=== PATIENT | male | born 1965 | race Caucasian/White ===

== ENCOUNTER 2018-12-29 14:37 | Emergency (ER) | payer BC ==
--- NOTE | 2018-12-29 14:53 | Emergency Department Record ---
History of Present Illness - General Chief complaint: Bite Insect/other Stated complaint: BEE STING Time Seen by Provider: 12/29/18 14:45 Source: Patient Mode of Arrival: Ambulatory Limitations: No limitations - History of Present Illness Initial comments: The patient is here due to a bee sting on the L dorsal wrist yesterday. He had no issues yesterday except for minor itching and a rash at the site. Today the rash appears slightly larger and spreading. He denies any pain, SOB, body itching or trouble breathing. The patient is a Type 1 diabetic and does take Insulin. MD complaint: Insect bite/sting, Rash Onset/Timin -: Days(s) Location: L hand Severity: Mild Severity scale (1-10): 4 Quality: Burning Consistency: Constant Improves with: None Worsens with: None Context: None Associated symptoms: Denies other symptoms Treatments Prior to Arrival: None - Related Data Home Medications Medication Instructions Recorded Confirmed Last Taken Fenofibrate Nanocrystallized 160 mg PO DAILY 12/29/18 12/29/18 Unknown [Fenofibrate] Ibuprofen 800 mg PO ASDIR 12/29/18 12/29/18 Unknown Insulin Aspart [Novolog Flexpen] 1 unit SQ WMEALS 12/29/18 12/29/18 Unknown Insulin Glargine,Hum.rec.anlog 58 unit SQ QAM 12/29/18 12/29/18 Unknown [Basaglar Kwikpen U-100] Allergies Allergy/AdvReac Type Severity Reaction Status Date / Time No Known Drug Allergies Allergy Verified 12/29/18 14:42 Travel Screening - Travel/Exposure Within Last 30 Days Have you traveled within the last 30 days?: No Review of Systems Constitutional: Denies: Chills, Fever Eyes: Denies: Eye discharge ENT: Denies: Congestion Respiratory: Denies: Cough, Dyspnea Past Medical History - SOCIAL HISTORY Smoking Status: Never smoker Alcohol Use: None Drug Use: None - RESPIRATORY Hx Respiratory Disorders: No - CARDIOVASCULAR Hx Cardio Disorders: Yes Hx Hypertension: Yes Comment:: high cholesterol - NEURO Hx Neuro Disorders: No - GI Hx GI Disorders: No - Hx Genitourinary Disorders: No - ENDOCRINE Hx Endocrine Disorders: Yes Hx Diabetes: Yes - MUSCULOSKELETAL Hx Musculoskeletal Disorders: No - PSYCH Hx Psych Problems: No - HEMATOLOGY/ONCOLOGY Hx Hematology/Oncology Disorders: No Family Medical History Any Significant Family History?: No Physical Exam - General General Appearance: Alert, Oriented x3, Cooperative, No acute distress - Head Head exam: Atraumatic, Normocephalic, Normal inspection - Eye Eye exam: Normal appearance, PERRL - Neck Neck exam: Normal inspection, Full ROM. negative: Tenderness - Respiratory Respiratory exam: Normal lung sounds bilaterally. negative: Respiratory distress, Rhonchi, Stridor, Wheezes - Cardiovascular Cardiovascular Exam: Regular rate, Normal rhythm, Normal heart sounds - GI/Abdominal GI/Abdominal exam: Soft, Normal bowel sounds. negative: Tenderness - Extremities Extremities exam: negative: Normal inspection (There is a very minor erythematous rash to the dorsal L wrist with mild erythema. There is no warmth or tenderness. The rash does not extend to the forearm.) Course Vital Signs 12/29/18 14:40 Temperature 98.7 F Pulse Rate 84 Respiratory 20 Rate Blood Pressure 143/70 Pulse Ox 98 - Reevaluation(s) Reevaluation #1: I did explain to the patient that it appears he is having a mild local allergic rxn to the bee sting. He clearly is not having any systemic symptoms and the L wrist does appear minor at this time. Due to his diabetes I am reluctant to prescribe oral steroids and will just keep the patient on high dose antihistamines for 3 days. Since he is driving he will stop at the store on the way home to obtain them. He understands the need to return to the ER for any worsening symptoms. 12/29/18 14:58 Disposition Disposition: Discharge Clinical Impression: Bee sting allergy Disposition: Home, Self-Care Condition: (2) Stable Instructions: Insect Bite or Sting (ED) Additional Instructions: Please ice the area during the day and take 50 mg of Benadryl 4 times a day for 3 days. Please monitor the L wrist and return to the ER for any worsening symptoms, pain, trouble breathing or rashes. Forms: Patient Portal Access Time of Disposition: 14:53 Quality - Quality Measures Quality Measures: N/A - Blood Pressure Screening View Details: Yes Does Patient Have Any of the Following: No Blood Pressure Classification: Hypertensive Reading Systolic Measurement: 143 Diastolic Measurement: 70 Screening for High Blood Pressure: < First Hypertensive BP, F/U Documented > [G8950] First Hypertensive Follow-up Interventions: Referral to alternative/primary care provider.
== END 2018-12-29 15:01 | disposition home or self-care (01) ==
LOC: ER 14:37
DX: T63.441A Toxic effect of venom of bees, accidental (unintentional), initial encounter (principal); R21 Rash and other nonspecific skin eruption; I10 Essential (primary) hypertension; Z79.4 Long term (current) use of insulin
CPT/HCPCS: 99282